=== PATIENT | male | born 1990 | race Caucasian/White ===

== ENCOUNTER 2017-05-22 21:14 | Emergency (ER) | payer BC ==
[2017-05-22 21:46] VITALS: BP 124/72; PULSE 56; RESP 17; TEMP 99.9; O2SAT 96
[2017-05-22] MEDS ORDERED: Albuterol 0.083% Inhal Sol (2.5 mg/3 mL) UD INH ONE (22:21)
[2017-05-22] MEDS ORDERED: Albuterol 0.083% Inhal Sol (2.5 mg/3 mL) UD ONE (22:31)
--- NOTE | 2017-05-22 23:07 | ED PDOC ---
HPI: CCC, URI, Sore Throat Time Seen by Provider: 05/22/17 21:40 Chief Complaint (Nursing): Cough, Cold, Congestion Chief Complaint (Provider): Cough History Per: Patient History/Exam Limitations: no limitations Have you had recent travel within the past 21 days to any of the following countries: [place], [place], [place] or [place]?: No Onset/Duration Of Symptoms: Days Current Symptoms Are (Timing): Still Present Additional History Per: Patient Additional Complaint(s): The patient is a 26yo male, a current smoker, presents to the ED for evaluation of cough and two episodes of hemoptysis. Patient states he might have smoked a lot more than usual, causing these symptoms. He denies any fever, vomiting, chest pain, shortness of breath. He offers no other medical complaints. Past Medical History Reviewed: Historical Data, Nursing Documentation, Vital Signs Vital Signs: Last Vital Signs Temp 99.9 F H 05/22/17 21:41 Pulse 56 L 05/22/17 21:41 Resp 17 05/22/17 21:41 BP 124/72 05/22/17 21:41 Pulse Ox 96 05/23/17 21:28 - Medical History PMH: No Chronic Diseases - Surgical History Surgical History: No Surg Hx - Family History Family History: States: No Known Family Hx - Social History Current smoker - smoking cessation education provided: Yes - Immunization History Hx Tetanus Toxoid Vaccination: No Hx Influenza Vaccination: No Hx Pneumococcal Vaccination: No - Home Medications Home Medications: Ambulatory Orders Medication Instructions Recorded Albuterol HFA [Ventolin HFA 90 1 - 2 puff IH Q4H PRN #1 bottle 05/22/17 mcg/actuation (8 g)] Azithromycin [Zithromax] 250 mg PO DAILY #6 tab 05/22/17 - Allergies Allergies/Adverse Reactions: Allergies Allergy/AdvReac Type Severity Reaction Status Date / Time No Known Allergies Allergy Verified 05/22/17 21:45 Review of Systems ROS Statement: Except As Marked, All Systems Reviewed And Found Negative Constitutional: Negative for: Fever Cardiovascular: Negative for: Chest Pain Respiratory: Positive for: Cough, Hemoptysis. Negative for: Shortness of Breath Gastrointestinal: Negative for: Nausea, Vomiting Physical Exam - Reviewed Nursing Documentation Reviewed: Yes Vital Signs Reviewed: Yes - Physical Exam Appears: Positive for: Non-toxic, No Acute Distress Head Exam: Positive for: ATRAUMATIC, NORMAL INSPECTION, NORMOCEPHALIC Skin: Positive for: Warm, Dry Neck: Positive for: Supple Cardiovascular/Chest: Positive for: Regular Rate, Rhythm Respiratory: Positive for: Normal Breath Sounds. Negative for: Wheezing, Respiratory Distress Neurologic/Psych: Positive for: Alert, Oriented. Negative for: Motor/Sensory Deficits - ECG O2 Sat by Pulse Oximetry: 96 (RA) Medical Decision Making Medical Decision Making: Time: 2219 Impression: Cough and hemoptysis Plan: -- CXR -- Albuterol Reassess Time: 23:30 --XR appears normal and shows no pneumonia. --Albuterol --Z-Pack pt states he feels better. no coughing while in the ER --Patient will follow up with PMD. --He is stable for discharge home. Scribe Attestation: Documented by Alice Thompson and Fernando Castro acting as a scribe for Avi Mathur MD. Provider Attestation: All medical record entries made by the Scribe were at my direction and personally dictated by me. I have reviewed the chart and agree that the record accurately reflects my personal performance of the history, physical exam, medical decision making, and the department course for this patient. I have also personally directed, reviewed, and agree with the discharge instructions and disposition. Disposition - Clinical Impression Clinical Impression: Cough - Patient ED Disposition Is Patient to be Admitted: No Counseled Patient/Family Regarding: Studies Performed, Diagnosis, Need For Followup, Rx Given - Disposition [facility]errals: [facility] [Outside] [facility] [Outside] Disposition: Routine/Home Disposition Time: 23:30 Condition: STABLE Additional Instructions: follow up with your primary doctor in 1-2 days smoking cessation advised return to the ED with any worsening or concerning symptoms Prescriptions: Albuterol HFA [Ventolin HFA 90 mcg/actuation (8 g)] 1 - 2 puff IH Q4H PRN #1 bottle PRN Reason: Wheezing Azithromycin [Zithromax] 250 mg PO DAILY #6 tab Instructions: Cold Symptoms (ED), Acute Cough (ED) Forms: [employer] (Turkmen) - POA Present On Arrival: None
== END 2017-05-23 | disposition home or self-care (01) ==
LOC: H.ER 21:14
DX: R05 Cough (principal); F17.200 Nicotine dependence, unspecified, uncomplicated; R04.2 Hemoptysis